=== PATIENT | female | born 1995 | race Two or more races ===

== ENCOUNTER 2020-02-19 17:33 | Emergency (ER) | payer OTHER ==
[~2020-02-19] VITALS: Ht 175.3 cm; Wt 81.6 kg
[2020-02-19] MEDS ORDERED: LEXAPRO5 MG (18:21)
[2020-02-19] MEDS ORDERED: LATUDA20 MG (18:21)
== END 2020-02-19 21:32 | disposition home or self-care (01) ==
LOC: ER 17:33
DX: M54.5 Low back pain (principal); M25.552 Pain in left hip